=== PATIENT | female | born 2005 | race Caucasian/White ===

== ENCOUNTER 2024-08-13 11:11 | Emergency (ER) | payer BC, SELFPAY ==
--- NOTE | ~2024-08-13 | XR_ITS ---
EXAMINATION: XR chest 2V DATE: 08/13/2024 12:30 INDICATION: Cough TECHNIQUE: PA and lateral views of the chest were obtained. COMPARISON: None FINDINGS: The lungs are clear with no focal airspace opacities, pulmonary edema, pleural effusion or pneumothor ax. The cardiomediastinal silhouette is normal. Visualized bones and soft tissues are unremarkable. IMPRESSION: 1. Normal chest radiograph. Reviewed, dictated and finalized at location A. [employer] ENGINEER IMPRESSION: 1. Normal chest radiograph.
[2024-08-13 11:19] VITALS: BP 119/75; PULSE 87; RESP 16; TEMP 37.1; O2SAT 99
--- NOTE | 2024-08-13 12:27 | ED.GENADULT ---
HPI - General Adult General Chief complaint: Upper Respiratory Infection Stated complaint: Chest Congestion/Cough Source: patient Mode of arrival: ambulatory Limitations: no limitations History of Present Illness HPI narrative: Patient presents for evaluation of sick symptoms. She initially had a sore throat 4 days ago. That has since resolved. She now reports a nonproductive cough, and pleuritic chest pain. No fever, chills nausea, vomiting, diarrhea. Recent sick contacts to her knowledge. She does not smoke. She took tylenol for her symptoms. Related Data Home Medications Medication Instructions Recorded Confirmed norethindrone (contraceptive) 0.35 1 mg PO DAILY 08/13/24 08/13/24 mg tablet (Incassia) Allergies Allergy/AdvReac Type Severity Reaction Status Date / Time No Known Allergies Allergy Verified 08/13/24 11:40 Review of Systems Review of Systems: CONSTITUTIONAL: Denies fever, chills, or sweats. EYES: Denies visual changes, redness, or discharge. ENT: Reports recent sore throat, now resolved. Denies rhinorrhea, congestion, or otalgia. CARDIOVASCULAR: Denies palpitations, or edema. RESPIRATORY: Reports cough and pleuritic chest pain. Denies shortness of breath GASTROINTESTINAL: Denies abdominal pain, nausea, vomiting, or diarrhea. GENITOURINARY: Denies dysuria or hematuria. SKIN: Denies rash or itching. MUSCULOSKELETAL: Denies back pain, joint pain, or myalgia. NEUROLOGIC: Denies headache, numbness, dizziness, or weakness. PSYCHIATRIC: Denies anxiety or depression. PMFSH Past Medical History Medical History (Updated 08/13/24 @ 12:43 by SONNY Cruz, ) No pertinent past medical history Surgical History Surgical History No pertinent past surgical history Family History Family History Mother Family history non-contributory Social History Social History Smoking status: Never smoker Substance use: never Gender identity (if verbalized by the patient): Female Spiritual care concerns: No Exam Narrative: GENERAL: Well-appearing, well-nourished, and in no acute distress. HEAD: Normocephalic, atraumatic. EYES: PERRLA and EOMI. ENT: Nares clear, no rhinorrhea or epistaxis. Mucous membranes moist. Oropharynx without tonsillar hypertrophy exudate or other lesions. Bilateral TMs pearly le nonbulging NECK: Supple. No adenopathy or masses. No carotid bruits or JVD CHEST: Cough present on exam. Clear to auscultation. No respiratory distress. No wheezes rales or rhonchi HEART: Regular rate and rhythm. No murmur heard. Normal peripheral pulses. ABDOMEN: Soft, nontender, nondistended, normal active bowel sounds. EXTREMITIES: Normal range of motion. No edema. SKIN: Warm, dry, no rash. NEURO: No focal deficits. Alert and oriented x3. PSYCH: Normal mood and affect. Course Course Emergency Course: This is a 19-year-old female who presented for evaluation of sick symptoms. Influenza, COVID, chest x-ray were all negative. Exam is consistent with acute viral syndrome. Increase hydration. [id number] agents for symptom management. Follow up with primary provider. Go to the ER for worsening symptoms. Patient in agreement with plan of care Level of Care: Express Care Visit Vital Signs Vital signs: Vital Signs Temperature 37.1 C 08/13/24 11:19 Pulse Rate 87 08/13/24 11:19 Respiratory Rate 16 08/13/24 11:19 Blood Pressure 119/75 08/13/24 11:19 Pulse Oximetry 99 08/13/24 11:19 Oxygen Delivery Room Air 08/13/24 11:19 Temperature 37.1 C 08/13/24 11:19 Pulse Rate 87 08/13/24 11:19 Respiratory Rate 16 08/13/24 11:19 Blood Pressure 119/75 08/13/24 11:19 Pulse Oximetry 99 08/13/24 11:19 Oxygen Delivery Room Air 08/13/24 11:19 Medical Decision Making Vital Signs Vital Signs: Vital Signs Temperature 37.1 C 08/13/24 11:19 Pulse Rate 87 08/13/24 11:19 Respiratory Rate 16 08/13/24 11:19 Blood Pressure 119/75 08/13/24 11:19 Pulse Oximetry 99 08/13/24 11:19 Oxygen Delivery Room Air 08/13/24 11:19 Temperature 37.1 C 08/13/24 11:19 Pulse Rate 87 08/13/24 11:19 Respiratory Rate 16 08/13/24 11:19 Blood Pressure 119/75 08/13/24 11:19 Pulse Oximetry 99 08/13/24 11:19 Oxygen Delivery Room Air 08/13/24 11:19 Lab Data Labs: Lab Results 08/13/24 Range/Units 12:33 POC Influenza A Ag Negative (Negative) POC Influenza B Ag Negative (Negative) POC SARS CoV-2 Ag Negative (Negative) Imaging Data Radiologist's impression: EXAMINATION: XR chest 2V DATE: 08/13/2024 12:30 INDICATION: Cough TECHNIQUE: PA and lateral views of the chest were obtained. COMPARISON: None FINDINGS: The lungs are clear with no focal airspace opacities, pulmonary edema, pleural effusion or pneumothorax. The cardiomediastinal silhouette is normal. Visualized bones and soft tissues are unremarkable. IMPRESSION: 1. Normal chest radiograph. Discharge Plan Discharge Clinical Impression: Viral upper respiratory infection Patient Disposition: Home, Self-Care Condition: Stable Instructions: Antibiotic Form, Upper Respiratory Infection (ED), Viral Syndrome (ED) Additional Instructions: Dextromethorphan(Delsym) may help with cough. Make sure you stay well hydrated. Patient Language: [place] Prescriptions: No Action norethindrone (contraceptive) [[facility]] 0.35 mg tablet 1 mg PO DAILY Follow-up/Referrals: Rosendo Smith MD [Physician] - Time of Disposition: 12:43
[2024-08-13 12:35] LABS: EDCOVIDSCREEN Negative (Negative); EDINFLUASCREEN Negative (Negative); EDINFLUBSCREEN Negative (Negative)
== END 2024-08-13 12:45 | disposition home or self-care (01) ==
PROVIDERS: Emergency Provider Nurse Practitioner
DX: J06.9 Acute upper respiratory infection, unspecified (principal); Z20.822 Contact with and (suspected) exposure to COVID-19
CPT/HCPCS: 71046; 87426; 87804; 99203; G0463